=== PATIENT | female | born 1985 | race Caucasian/White ===

== ENCOUNTER 2022-03-16 16:15 | Outpatient (RCR) | payer BC, SELFPAY ==
[2022-03-16 17:02] LABS: Appearance Urine Clear (Clear); Basophils Percent Auto 0.4 % (0.2-1.2); Bilirubin Urine Negative (Negative); Blood Urine Negative (Negative); Color Urine Yellow (Yellow); Eosinophils Absolute Auto 0.1 K/mm3 (0-0.3); Eosinophils Percent Auto 1.5 % (0-4.4); Glucose Urine UA Negative (Negative); Hematocrit 32.8 % (37.0-47.0); Hemoglobin 10.4 g/dL (12.0-15.0); Immature Granulocyte Absolute 0.04 K/mm3 (0.00-0.031); Immature Granulocyte Percent A 0.4 % (0-0.5); Ketones Urine Negative (Negative); Leukocyte Esterase Ur 1+ LEU/UL (Negative); Lymphocytes Absolute Auto 1.42 K/mm3 (0.9-3.2); Lymphocytes Percent Auto 15.9 % (18.3-44.2); Mean Corpuscular HGB Conc 31.7 g/dl (32-36); Mean Platelet Volume 12.8 fl (7.4-10.4); Monocytes Absolute Auto 0.5 K/mm3 (0.1-0.6); Monocytes Percent Auto 5.6 % (2.6-8.5); Neutrophils Absolute Auto 6.8 K/mm3 (1.3-6.7); Neutrophils Percent Auto 76.2 % (45.5-73.1); Nitrate Urine Negative (Negative); Platelet Count Result 172 k/mm3 (150-375); Protein Urine Negative (Negative); Red Cell Distribution Width 13.8 % (11.5-14.5); Specific Grav Ur >= 1.030 (1.001-1.035); Urobilinogen Urine 0.2 mg/dL (<2.0); White Blood Count 8.9 K/mm3 (4.5-10.0)
[2022-03-16 17:09] LABS: Bacteria Urine Trace /hpf; Mucus Urine Rare /lpf; RBC Urine 0-2 /hpf (0-2); Squamous Epithelial Cell Urine Many /hpf (Few); WBC Urine 0-3 /hpf
[2022-03-16 17:11] LABS: Add Urine Microscopic? YES
[2022-03-16 17:12] LABS: Alanine Aminotransferase 13 U/L (6-35); Albumin Level 3.5 g/dL (3.5-5.1); Alkaline Phosphatase 125 U/L (38-126); Anion Gap 3 mmol/L (8-16); Aspartate Amino Transferase 18 U/L (14-36); Bilirubin,Total < 0.1 mg/dL (0.2-1.3); Blood Urea Nitrogen 15 mg/dL (7-17); Calcium 8.7 mg/dL (8.4-10.2); Carbon Dioxide 24 mmol/L (22-30); Chloride 108 mmol/L (98-107); Estimated Glomerular Filt Rate > 60; Glucose 69 mg/dL (65-110); Potassium 3.9 mmol/L (3.4-5.0); Sodium 135 mmol/L (137-145); Uric Acid 4.8 mg/dL (2.5-7.5)
[2022-03-16 17:23] LABS: Creatinine Urine 122.6 mg/dL; Total Protein Urine Random 15 mg/dL; Ur Ttl Prot Creatinine Ratio 0.12 mg/mg (0-0.20)
[2022-03-16 17:38] VITALS: BP 142/84; PULSE 72
== END 2022-03-30 10:52 | disposition home or self-care (01) ==
LOC: ANHOBOP 16:15
PROVIDERS: Visit Provider Obstetrics & Gynecology
DX: O16.3 Unspecified maternal hypertension, third trimester (principal); Z3A.37 37 weeks gestation of pregnancy
CPT/HCPCS: 36415; 59025; 80053; 81001; 82570; 84156; 84550; 85025

== ENCOUNTER 2022-03-25 06:15 | Inpatient (IN) | payer BC, SELFPAY ==
[2022-03-25] VITALS (70 sets, daily range): BP systolic 118–164; BP diastolic 69–138; PULSE 65–117; RESP 16; TEMP 36.5–37; O2SAT 99–100; BMI 33.3
--- NOTE | 2022-03-25 06:30 | LDADM ---
This patient, Myranda Barrett, was admitted to Labor/Delivery/Recovery 106 on 03/25/22 at 06:15. Plans for labor, pain management and were discussed with patient. Patient/family oriented to hospital policies and general routines including ID bracelet, bed and alarms, visiting hours, pain management, procedures, bathroom and other care routines, personal items, smoking policy, room service/diet and guest tray routines, security routines, and visiting hours. Patient/Family are encouraged to report perceived risks to care and to ask questions if they do not understand what they are told or what they should do. See OBIX for further documentation.
[2022-03-25 07:07] LABS: Basophils Absolute Auto 0.1 K/mm3 (0.0-0.1); Basophils Percent Auto 0.6 % (0.2-1.2); Eosinophils Absolute Auto 0.1 K/mm3 (0-0.3); Eosinophils Percent Auto 1.4 % (0-4.4); Hematocrit 31.5 % (37.0-47.0); Hemoglobin 9.9 g/dL (12.0-15.0); Immature Granulocyte Absolute 0.05 K/mm3 (0.00-0.031); Immature Granulocyte Percent A 0.6 % (0-0.5); Immature Platelet Fraction Pct 15.6 % (0.9-11.2); Lymphocytes Absolute Auto 1.53 K/mm3 (0.9-3.2); Lymphocytes Percent Auto 19.5 % (18.3-44.2); Mean Corpuscular HGB Conc 31.4 g/dl (32-36); Mean Corpuscular Hemoglobin 25.8 pg (26-34); Mean Platelet Volume 12.9 fl (7.4-10.4); Monocytes Absolute Auto 0.3 K/mm3 (0.1-0.6); Monocytes Percent Auto 4.3 % (2.6-8.5); Neutrophils Absolute Auto 5.8 K/mm3 (1.3-6.7); Neutrophils Percent Auto 73.6 % (45.5-73.1); Platelet Count Result 170 k/mm3 (150-375); Red Blood Count 3.84 M/mm3 (4.2-5.4); Red Cell Distribution Width 14.5 % (11.5-14.5); White Blood Count 7.9 K/mm3 (4.5-10.0)
[2022-03-25] MEDS: LACTATED RINGERS 1,000 ML 125 ML IV CONT (07:07)
[2022-03-25] MEDS: OXYTOCIN 30 UNITS/NS 500 ML 30 UNITS/500 ML BAG IV CONT (07:08)
--- NOTE | 2022-03-25 07:39 | P.PNAN_ITS ---
Anes - Eval Pre Procedure Procedure: labor epidural Date/Time: 03/25/22 07:39 Surgeon: reji Preop Diagnosis: pain during labor Pre Op Diagnosis: iol Patient Data Age: 36 Gender: F Height: Weight: Last Vital Signs Pulse 85 03/25/22 07:01 BP 132/86 03/25/22 07:01 Allergies Allergy/AdvReac Type Severity Reaction Status Date / Time Penicillins Allergy Unknown Verified 03/16/22 17:01 Home Medications Medication Instructions Recorded Confirmed Type vit no.95-ferrous 1 tablet PO DAILY 03/16/22 03/16/22 History fumarate 28 mg-folic acid 800 mcg tablet () Laboratory Tests 03/25/22 03/25/22 06:58 06:58 WBC 7.9 K/mm3 K/mm3 (4.5-10.0) RBC 3.84 M/mm3 L M/mm3 (4.2-5.4) Hgb 9.9 g/dL L g/dL (12.0-15.0) Hct 31.5 % L % (37.0-47.0) MCV 82.0 fl fl (80-100) MCH 25.8 pg L pg (26-34) MCHC 31.4 g/dl L g/dl (32-36) RDW 14.5 % % (11.5-14.5) Plt Count 170 k/mm3 k/mm3 (150-375) MPV 12.9 fl H fl (7.4-10.4) Immature Gran % (Auto) 0.6 % H % (0-0.5) Neut % (Auto) 73.6 % H % (45.5-73.1) Lymph % (Auto) 19.5 % % (18.3-44.2) [place] % (Auto) 4.3 % % (2.6-8.5) Eos % (Auto) 1.4 % % (0-4.4) Baso % (Auto) 0.6 % % (0.2-1.2) Lymph # (Auto) 1.53 K/mm3 K/mm3 (0.9-3.2) [place] # (Auto) 0.3 K/mm3 K/mm3 (0.1-0.6) Eos # (Auto) 0.1 K/mm3 K/mm3 (0-0.3) Baso # (Auto) 0.1 K/mm3 K/mm3 (0.0-0.1) Abs Immat Gran (auto) 0.05 K/mm3 H K/mm3 (0.00-0.031) Absolute Neuts (auto) 5.8 K/mm3 K/mm3 (1.3-6.7) Absolute Nucleated RBC 0.0 K/mm3 K/mm3 (0.0-0.012) Nucleated RBC % 0.0 % % (0.0-0.2) % Immature Plt Fraction 15.6 % H % (0.9-11.2) RPR Pending Patient hx anesthesia problems: none Family hx anesthesia problems: none Results Review: All pre-operative results and documents have been reviewed as part of the pre- operative evaluation. Exam Day of Procedure 03/25/22 07:39
[2022-03-25 08:20] LABS: Alanine Aminotransferase 13 U/L (6-35); Albumin Level 3.1 g/dL (3.5-5.1); Alkaline Phosphatase 133 U/L (38-126); Anion Gap 5 mmol/L (8-16); Aspartate Amino Transferase 18 U/L (14-36); Bilirubin,Total < 0.1 mg/dL (0.2-1.3); Blood Urea Nitrogen 14 mg/dL (7-17); Calcium 8.1 mg/dL (8.4-10.2); Carbon Dioxide 21 mmol/L (22-30); Chloride 108 mmol/L (98-107); Estimated CRCL calculation 106 ml/min; Estimated Glomerular Filt Rate > 60; Glucose 99 mg/dL (65-110); Potassium 3.6 mmol/L (3.4-5.0); Sodium 134 mmol/L (137-145)
--- NOTE | 2022-03-25 08:50 | WPDOBADMIT ---
Obstetrics - Admit Note Admission Note: record reviewed. Additions to the history and/or subsequent changes in the physical findings follow. 36 y/o at 38 6/7 weeks gestation here for induction of labor due to gestational hypertension, worsening bp control. GBS neg. Transferred care to my office in the midtrimester. Early complicated by NIPT pos for Trisomy 13. She was referred for MFM consultation and had a negative amniocentesis. GBS neg. No headache or visual field change, no edema. Labs have been OK. Good movement. AVSS NST reactive TOCO: irregular contractions ABD soft, nontender, gravid, vertex EXT nontender Cervix 3/80/-2. AROM with clear fluid. Cr 0.7. Other labs all OK. A: IUP at 38 6/7 weeks with gestational HTN P: Offered induction of labor. Oxytocin. Anticipate .
--- NOTE | 2022-03-25 12:23 | P.PCNOB_ITS ---
OB - Delivery Note Procedure Delivery date: 03/25/22 Procedure: Induction of labor with Events: Gestational Hypertension Induction method: Per Pitocin Protocol Delivery augmentation: Rupture of Membranes Delivery monitor: External FHT and External Uterine Route of delivery: Laceration Description: Perineal - 1st Degree Delivery repair: vicryl (3-0) Specimen: Yes (cord blood, placenta) Quantitative Blood Loss (ml): 110 Anesthesia type: Epidural Disposition: PACU Complications: None Narrative: 36 y/o at 38 6/7 weeks gestation who presented to the hospital for induction of labor for gestational hypertension. Oxytocin was administered intravenously. Amniotomy was performed with return of clear fluid. She received an epidural for pain control. Her labor progressed and her cervix dilated completely. She pushed with good effort and delivered the 's head to the perineum, followed by the body. The nose and mouth were bulb suctioned. After a delay, the cord was clamped and cut. The was handed off the field. Cord blood was collected. The placenta delivered spontaneously and was grossly normal in appearance. The usual 3 vessel cord was noted. A first degree midline perineal laceration was sustained. This was reapproximated using 3 0 Vicryl in a single figure of eight suture. Excellent hemostasis resulted as did excellent reapproximation of the normal anatomy. Needle and instrument counts were correct. The patient was taken to recovery room in stable condition . The infant went to the nursery in stable condition. I was present and scrubbed for the entire delivery. Baby Date of : 03/25/22 Time of : 12:04 Weeks of gestation at delivery: 38 gender: Female Weight (pounds): 6 Weight (ounces): 7 presentation: vertex position: Left Occiput Anterior Placenta delivery description: Spontaneous and Normal Configuration Cord Vessel Description: 3 Vessels and Delayed Cord Clamping score one minute: 9 score five minutes: 9
[2022-03-25] MEDS: OXYTOCIN 30 UNITS/NS 500 ML 30 UNITS/500 ML BAG 125 UNITS IV CONT (12:45)
[2022-03-25] MEDS: DOCUSATE SODIUM 100 MG CAPSULE PO (16:14)
[2022-03-25] MEDS: POLYSACCHARIDE IRON COMPLEX 150 MG CAPSULE PO (16:14)
[2022-03-25] MEDS: IBUPROFEN 600 MG TABLET PO (16:14)
--- NOTE | 2022-03-25 19:11 | OBPPTRN ---
1450-Patient transferred to post room #278 via wheelchair. Support person present. Oriented to unit, room, information board, rooming in, admission packet and security measures. Patient verbalizes understanding.
[2022-03-25] MEDS: ACETAMINOPHEN 325 MG TABLET 650 MG PO (21:45)
[2022-03-26] VITALS (7 sets, daily range): BP systolic 136–145; BP diastolic 84–90; PULSE 70–78; RESP 16–18; TEMP 36.7–36.8; O2SAT 100
[2022-03-26] MEDS: IBUPROFEN 600 MG TABLET PO ×3 (00:41→18:37)
[2022-03-26] MEDS: ACETAMINOPHEN 325 MG TABLET 650 MG PO (02:45)
[2022-03-26 04:58] LABS: Hematocrit 30.6 % (37.0-47.0); Hemoglobin 9.5 g/dL (12.0-15.0)
--- NOTE | 2022-03-26 08:13 | PM.OBPNVD ---
OB - PN: Subj Subjective Date/time seen: 03/26/22 08:13 Patient comments: no complaints, pain well controlled and tolerating diet [place] feeding status: exclusively breast feeding Narrative: patient doing well this AM. No complaints. Pain is well controlled. She reports minimal bleeding. She is ambulating and voiding without difficulty. She is tolerating PO. She denies N/V, fever, chills. OB - PN: Obj Data Labs CBC & Chem 7: 03/26/22 03:37 03/25/22 08:04 Labs: Laboratory Results - last 24 hr 03/25/22 03/25/22 03/26/22 06:58 08:04 03:37 Hgb 9.5 L Hct 30.6 L Sodium 134 L Potassium 3.6 Chloride 108 H Carbon Dioxide 21 L Anion Gap 5 L BUN 14 Creatinine 0.70 Estim Creat Clear Calc 106 Estimated GFR > 60 Glucose 99 Calcium 8.1 L Total Bilirubin < 0.1 L AST 18 ALT 13 Alkaline Phosphatase 133 H Total Protein 6.0 L Albumin 3.1 L Blood Type O Positive Antibody Screen Negative OB - PN A/P Plan day: 1 Plan: routine care Comments: patient doing well H/H 9.02/15, continue iron supplementation BP mild range, will continue to monitor. Pt to follow up in office in 1 wk continue routine care Time Spent With Patient Time: Total time spent is greater than 50% in coordination of care (as documented) at patient's floor/unit and/or counseling patient: Time with patient: less than 15 minutes Review of Systems Review of Systems: All systems reviewed & are unremarkable except as noted in HPI and below Exam Const: General: comfortable and no acute distress Resp: Effort & Inspection: normal respiratory effort Cardio: Rate: regular rate GI: GI Palp: Yes Soft to palpation and No Tenderness to palpation present (GI) Auscultation: normal bowel sounds Other: fundus firm and below umbilicus. Psych: Affect: normal affect
[2022-03-26 08:35] LABS: Rapid Plasma Reagin Non-Reactive (NonReactive)
[2022-03-26] MEDS: MULTIVIT/MIN/PREN/FOL AC/IRON TABLET 1 TAB PO (09:58)
[2022-03-26] MEDS: DOCUSATE SODIUM 100 MG CAPSULE PO ×2 (10:01→18:36)
[2022-03-26] MEDS: POLYSACCHARIDE IRON COMPLEX 150 MG CAPSULE PO ×2 (10:01→18:36)
--- NOTE | 2022-03-26 12:54 | PC.NURSE ---
[id number] Introductions were made, then consulted with patient to assess needs related to . Infant is in the bassinet wrapped up and mother is relaxed in her bed using her phone. Mother led the conversation with her experience feeding her so far and demonstrated latching in cradle position with non-optimal latch and described the latch as pinchy . Mother works well with her with encouragement and education. RN suggested understanding of the benefits of skin to skin (unwrapping and placing vertically on her chest), responsive feeding and how to watch for early feeding signs, frequency of feeding on demand about every 8-12 times in 24 hours (every 2-3 hours), milk production, duration of feeding, signs of adequate intake/output and how to record on the feeding sheet. Reminded mother of efforts to look for to train to latch optimally and not sleep through feedings, positioning and ear, shoulder, hip alignment, supporting the breast, asymmetrical latch (off-center), and leading with the chin with a big open side gape. latched optimally to the right breast in football position. Education given to mother of how to visualize suck/swallow ratios and drinking at the breast. was able to maintain latch without discomfort to mother. Nipple care reviewed with optimal latch and good positioning. Reminding mother of comfort measures of healing with a warm and wet washcloth to rinse breast, then leave open to air-dry as needed. Reviewed good handwashing when or touching the breast/nipples to prevent infection. Resources used to facilitate learning were used with the visual handouts/ tool/mom and baby guide. Mother voiced understanding of responsive feedings, stimulating with skin to skin, hand expressed colostrum, touch, talking to to encourage if it has been 2 -3 hours since the start of the last , to call if does not latch or there is discomfort with . Reported to the primary RN.
--- NOTE | 2022-03-26 13:22 | WPDANLDPN2 ---
Anes-Prog Note L&D Date/Time: 03/26/22 13:22 Comfortable throughout: labor and delivery Neuraxial method: epidural Epidural/Spinal procedure site: clean & non-tender Neuro status: Neuro function grossly intact. Cardiovascular status: normal Respiratory status: normal Airway patency: baseline Mental status: baseline Post-Op hydration status: normal Vital Signs: Last Vital Signs Temp 36.7 C 03/26/22 12:36 Pulse 76 03/26/22 12:36 Resp 16 03/26/22 12:36 BP 136/86 03/26/22 12:36 Pulse Ox 100 03/26/22 12:36 O2 Del Method Room Air 03/26/22 08:00 Pain score (VAS): 09/28 I/O: Intake & Output 03/25/22 03/26/22 03/26/22 23:59 07:59 15:59 Intake Total 600 300 Output Total 790 Balance 600 -490 Post-procedural complaints: none Patient feedback: Patient satisfied with anesthetic care.
[2022-03-27] MEDS: IBUPROFEN 600 MG TABLET PO ×2 (02:54→09:33)
[2022-03-27 05:20] VITALS: BP 132/87; PULSE 80
--- NOTE | 2022-03-27 06:54 | P.DS_ITS ---
DS: Admitting Diagnosis Discharge Date 03/27/2022 Admitting Diagnosis Gestational hypertension DS: Discharge Diagnosis Discharge Diagnosis (1) Intrauterine : Code(s): Z34.90 - Encounter for supervision of normal , unspecified, unspecified trimester Status: Acute (2) Gestational hypertension: Code(s): O13.9 - Gestational [-induced] hypertension without significant proteinuria, unspecified trimester Status: Acute DS: Summary Hospital Course Reason for hospitalization: Induction of labor at 39 weeks for gestational hypertension Hospital Course: Patient was admitted for induction of labor and was successful with spontaneous vaginal delivery. Her hospital course was unremarkable Time Spent with Patient Time attestation: Total time spent providing and/or coordinating discharge services: DS: Data Data Completed and Pending Labs on day of discharge: Labs from last 24 hours 03/25/22 06:58 RPR Non-reactive Discharge Plan Discharge Attending physician on discharge: Yared Kaur Discharging Clinician: Yared Kaur Patient Disposition: Home, Self-Care Activity: pelvic rest Diet: regular Discharge Instructions: Call or return if temperature above 100.4? F, increased abdominal pain, increased vaginal bleeding or any new problems. Stand Alone Forms: General Discharge Information Follow-up/Referrals: Yared Kaur MD [Physician] - 6 Weeks Discharge Medications: New ibuprofen 600 mg tablet 600 mg PO Q6H PRN (Reason: cramps) Qty: 30 0RF Continued PNV cmb#95-ferrous fumarate-FA [] 28 mg iron- 800 mcg Tablet 1 tablet PO DAILY Date of admission: 03/25/22 06:15 Primary Care Provider: PHYSICIAN,AUTOMATION SOFTWARE ENGINEER Admitting Provider: Yared Kaur Attending physician on admission: Yared Kaur Condition: Stable
[2022-03-27] MEDS: MULTIVIT/MIN/PREN/FOL AC/IRON TABLET 1 TAB PO (08:09)
[2022-03-27] MEDS: DOCUSATE SODIUM 100 MG CAPSULE PO (08:09)
[2022-03-27] MEDS: POLYSACCHARIDE IRON COMPLEX 150 MG CAPSULE PO (08:10)
[2022-03-27 08:15] VITALS: BP 143/93; PULSE 88; RESP 18; TEMP 36.6; O2SAT 100
--- NOTE | 2022-03-27 09:46 | PC.NURSE ---
Patient viewed the discharge video Mother & Baby Care, The First Two Weeks . Patient was given the opportunity and encouraged to ask questions. Patient verbalized understanding of information shared and has been given the mother/baby guide for home reference.
[2022-03-27] MEDS: LANOLIN (LANSINOH) 7.5 GM CREAM 1 APPLIC TOPICAL (10:11)
[2022-03-29 15:11] VITALS: BP 158/95; PULSE 89; RESP 20; TEMP 37.1; O2SAT 100
== END 2022-03-27 13:00 | disposition home or self-care (01) | DRG 807 ==
LOC: ANHLDR 12:31 → ANHOB2 03-27 09:09 → ANHLDR 03-30 10:34 → ANHOB2 03-30 10:34
PROVIDERS: Admitting Provider Obstetrics & Gynecology; Visit Provider Obstetrics & Gynecology
DX: O13.4 Gestational [pregnancy-induced] hypertension without significant proteinuria, complicating childbirth (principal); Z37.0 Single live birth; O70.0 First degree perineal laceration during delivery; Z3A.38 38 weeks gestation of pregnancy
CPT/HCPCS: 36415; 80053; 85014; 85018; 85025; 85055; 86592; 86850; 86900; 86901; A9270; J2590; J2795; J7120

== ENCOUNTER 2022-03-29 16:35 | Outpatient (CLI) | payer BC, SELFPAY ==
[2022-03-29] VITALS (12 sets, daily range): BP systolic 125–161; BP diastolic 77–96; PULSE 78–92
[2022-03-29] MEDS: LABETALOL HCL 100 MG TABLET 200 MG PO (17:37)
[2022-03-29 17:38] LABS: Basophils Percent Auto 0.4 % (0.2-1.2); Eosinophils Absolute Auto 0.3 K/mm3 (0-0.3); Eosinophils Percent Auto 3.9 % (0-4.4); Hemoglobin 10.6 g/dL (12.0-15.0); Immature Granulocyte Absolute 0.05 K/mm3 (0.00-0.031); Immature Granulocyte Percent A 0.7 % (0-0.5); Lymphocytes Absolute Auto 1.07 K/mm3 (0.9-3.2); Lymphocytes Percent Auto 14.5 % (18.3-44.2); Mean Corpuscular HGB Conc 30.3 g/dl (32-36); Mean Corpuscular Hemoglobin 25.5 pg (26-34); Mean Corpuscular Volume 84.3 fl (80-100); Mean Platelet Volume 11.5 fl (7.4-10.4); Monocytes Absolute Auto 0.3 K/mm3 (0.1-0.6); Monocytes Percent Auto 3.7 % (2.6-8.5); Neutrophils Absolute Auto 5.7 K/mm3 (1.3-6.7); Neutrophils Percent Auto 76.8 % (45.5-73.1); Platelet Count Result 202 k/mm3 (150-375); Red Blood Count 4.15 M/mm3 (4.2-5.4); Red Cell Distribution Width 14.7 % (11.5-14.5); White Blood Count 7.4 K/mm3 (4.5-10.0)
[2022-03-29 17:53] LABS: Alanine Aminotransferase 58 U/L (6-35); Albumin Level 3.6 g/dL (3.5-5.1); Alkaline Phosphatase 111 U/L (38-126); Anion Gap 3 mmol/L (8-16); Aspartate Amino Transferase 60 U/L (14-36); Bilirubin,Total 0.2 mg/dL (0.2-1.3); Blood Urea Nitrogen 18 mg/dL (7-17); Calcium 8.7 mg/dL (8.4-10.2); Carbon Dioxide 26 mmol/L (22-30); Chloride 106 mmol/L (98-107); Estimated Glomerular Filt Rate > 60; Glucose 86 mg/dL (65-110); Potassium 4.2 mmol/L (3.4-5.0); Sodium 135 mmol/L (137-145)
--- NOTE | 2022-03-29 17:57 | PC.NURSE ---
Called Dr. Shalom Goode reviewed pt headache, lab results, and blood pressure. Orders received to administer Fiorcet, labetalol 200 mg BID, and D/C.
--- NOTE | 2022-03-29 18:11 | P.PNOB_ITS ---
OB - Triage/Final Diagnosis Visit Information Date of evaluation: 03/29/22 Reason for evaluation: other ( hypertension) Comments/Additional reasons for admission: I have assessed the risk for this patient, Myranda Barrett, and determined that she would benefit from observation care. Evaluation Laboratory results: Laboratory Tests 03/29/22 03/29/22 17:19 17:19 WBC 7.4 RBC 4.15 L Hgb 10.6 L Hct 35.0 L MCV 84.3 MCH 25.5 L MCHC 30.3 L RDW 14.7 H Plt Count 202 MPV 11.5 H Immature Gran % (Auto) 0.7 H Neut % (Auto) 76.8 H Lymph % (Auto) 14.5 L [place] % (Auto) 3.7 Eos % (Auto) 3.9 Baso % (Auto) 0.4 Lymph # (Auto) 1.07 [place] # (Auto) 0.3 Eos # (Auto) 0.3 Baso # (Auto) 0.0 Abs Immat Gran (auto) 0.05 H Absolute Neuts (auto) 5.7 Absolute Nucleated RBC 0.0 Nucleated RBC % 0.0 Sodium 135 L Potassium 4.2 Chloride 106 Carbon Dioxide 26 Anion Gap 3 L BUN 18 H Creatinine 0.80 Estim Creat Clear Calc Not Reportable Estimated GFR > 60 Glucose 86 Uric Acid 5.0 Calcium 8.7 Total Bilirubin 0.2 AST 60 H ALT 58 H Alkaline Phosphatase 111 Total Protein 7.0 Albumin 3.6 Vital signs: Vital Signs - 24 hr 03/29/22 17:11 03/29/22 17:13 03/29/22 17:16 Pulse Rate 87 86 85 Blood Pressure 161/91 H 140/83 144/86 H Blood Pressure [Left Arm] 03/29/22 17:31 03/29/22 17:46 03/29/22 17:49 Pulse Rate 85 88 78 Blood Pressure 139/81 125/77 149/86 H Blood Pressure [Left Arm] 03/29/22 18:01 03/29/22 17:37 03/29/22 17:40 Pulse Rate 81 82 86 Blood Pressure 146/88 H Blood Pressure [Left Arm] 140/83 03/29/22 17:50 Pulse Rate 78 Blood Pressure 149/86 H Blood Pressure [Left Arm]
[2022-03-29] MEDS: ACETAMINOPHEN/BUTALBITAL/CAFFEINE 325-50-40 MG TABLET (FIORICET) 1 TAB PO (18:32)
== END 2022-03-29 18:47 | disposition home or self-care (01) ==
LOC: ANHOBOP 16:51 → ANHOBPP 16:52
PROVIDERS: Obstetrics & Gynecology; Visit Provider Obstetrics & Gynecology
DX: O16.5 Unspecified maternal hypertension, complicating the puerperium (principal); Z3A.00 Weeks of gestation of pregnancy not specified
CPT/HCPCS: 36415; 80053; 84550; 85025; 99199; A9270

== ENCOUNTER 2022-03-30 16:20 | Outpatient (CLI) | payer BC, SELFPAY ==
[2022-03-30] VITALS (18 sets, daily range): BP systolic 122–155; BP diastolic 75–98; PULSE 74–98
--- NOTE | 2022-03-30 16:35 | PC.NURSE ---
Called Dr. Shalom Goode with pt status. Informed of BP. Pt complaining of headache that has not gone away since she was here yesterday. Orders received.
[2022-03-30] MEDS: ONDANSETRON HCL ODT 4 MG TABLET PO (17:02)
[2022-03-30 17:03] LABS: Basophils Percent Auto 0.5 % (0.2-1.2); Eosinophils Absolute Auto 0.2 K/mm3 (0-0.3); Eosinophils Percent Auto 2.5 % (0-4.4); Hematocrit 34.9 % (37.0-47.0); Hemoglobin 10.9 g/dL (12.0-15.0); Immature Granulocyte Absolute 0.06 K/mm3 (0.00-0.031); Immature Granulocyte Percent A 0.7 % (0-0.5); Lymphocytes Percent Auto 13.7 % (18.3-44.2); Mean Corpuscular HGB Conc 31.2 g/dl (32-36); Mean Corpuscular Hemoglobin 25.9 pg (26-34); Mean Corpuscular Volume 82.9 fl (80-100); Monocytes Absolute Auto 0.2 K/mm3 (0.1-0.6); Monocytes Percent Auto 2.7 % (2.6-8.5); Neutrophils Absolute Auto 6.4 K/mm3 (1.3-6.7); Neutrophils Percent Auto 79.9 % (45.5-73.1); Platelet Count Result 196 k/mm3 (150-375); Red Blood Count 4.21 M/mm3 (4.2-5.4); Red Cell Distribution Width 14.8 % (11.5-14.5)
[2022-03-30 17:17] LABS: Alanine Aminotransferase 55 U/L (6-35); Albumin Level 3.8 g/dL (3.5-5.1); Alkaline Phosphatase 123 U/L (38-126); Anion Gap 5 mmol/L (8-16); Aspartate Amino Transferase 44 U/L (14-36); Bilirubin,Total 0.1 mg/dL (0.2-1.3); Blood Urea Nitrogen 15 mg/dL (7-17); Calcium 8.5 mg/dL (8.4-10.2); Carbon Dioxide 24 mmol/L (22-30); Chloride 108 mmol/L (98-107); Estimated Glomerular Filt Rate > 60; Glucose 91 mg/dL (65-110); Potassium 4.4 mmol/L (3.4-5.0); Sodium 137 mmol/L (137-145); Uric Acid 5.1 mg/dL (2.5-7.5)
[2022-03-30] MEDS: ACETAMINOPHEN/BUTALBITAL/CAFFEINE 325-50-40 MG TABLET (FIORICET) 2 TAB PO (17:21)
[2022-03-30] MEDS: LABETALOL HCL 100 MG TABLET 200 MG PO (17:22)
--- NOTE | 2022-03-30 18:30 | PC.NURSE ---
Called Dr. Shalom Goode with pt update. Lab results and most recent BP given. Pt states headache is 4.5 on 1-10 scale. Pt asking if she can go home soon. May D/C home.
[2022-03-30] MEDS: IBUPROFEN 400 MG TABLET 800 MG PO (20:44)
--- NOTE | 2022-03-30 22:04 | PC.NURSE ---
1834- pt guarding eyes from light and pushing on head. states that she is having a headache rating it 4/10 on pain scale. pt looks uncomfortable. pt requesting to go home. recommend staying until feeling a bit better. pt agrees. 1919- went in to check on pt. pt states that she still has a 4/10 headache that is right temporal and back of neck. pt states that she hasn't eaten much today and that she hasn't drank much today. warm blankets applied to neck and head for comfort. pt given sandwich/chips/soda. FOB in room and taking care of baby. 1942- called Dr. Shalom Goode- gave update on pt status. pt currently resting. order received for ibuprofen 800mg prn headache. BP's reviewed. pt may d/c home if feeling better. 2008- pt sleeping. 2034- pt states that her headache is a 2-3/10 and is wanting to d/c home. pt requesting ibuprofen prior to d/c. pt instructed on when to call physician or when to return to hospital. pt agrees. pt also reminded to continue to take labetalol 200mg BID. pt agrees.
== END 2022-03-30 20:48 | disposition home or self-care (01) ==
LOC: ANHOBOP 16:34 → ANHLDR 16:35 → ANHOBPP 04-05 06:20
PROVIDERS: Obstetrics & Gynecology; Visit Provider Obstetrics & Gynecology
DX: R51.9 Headache, unspecified (principal); O13.9 Gestational [pregnancy-induced] hypertension without significant proteinuria, unspecified trimester; Z3A.00 Weeks of gestation of pregnancy not specified
CPT/HCPCS: 36415; 80053; 84550; 85025; 99199; A9270

== ENCOUNTER 2024-02-01 22:45 | Observation (INO) | payer BC, SELFPAY ==
--- NOTE | ~2024-02-01 | CT_ITS ---
EXAMINATION: CT abdomen pelvis w con DATE: 02/01/2024 23:22 INDICATION: Right upper quadrant abdominal pain. TECHNIQUE: Computed tomography (CT) of the abdomen and pelvis was performed with 100 mL Omnipaque 350 intravenous contrast. Automated exposure control and iterative reconstruction technique were employe d. The dose-length product was 539.66 mGy-cm. COMPARISON: None. FINDINGS: The visualized portions of the lung bases demonstrate minimal atelectasis. No pleural effus ion. The heart size is normal. No pericardial effusion. The gallbladder is distended. The liver, sple en, pancreas, adrenal glands, and kidneys are normal. There are no dilated loops of bowel. The append ix is normal. There are no pathologically enlarged lymph nodes. There is no free intraperitoneal flui d. There is a 3.0 cm cyst in right ovary, likely a follicular cyst. The bones are unremarkable. IMPRESSION: 1. Gallbladder distention, which may be seen with fasting or acute cholecystitis. Correlate with phys ical exam. Reviewed, dictated and finalized at location E. IMPRESSION: 1. Gallbladder distention, which may be seen with fasting or acute cholecystiti s. Correlate with physical exam.
--- NOTE | ~2024-02-01 | US_ITS ---
EXAMINATION: US abdomen limited DATE: 02/02/2024 08:57 INDICATION: Acute cholecystitis TECHNIQUE: Multiple grayscale and Doppler ultrasound images of the abdomen were obtained. COMPARISON: CT dated 02/01/2024 FINDINGS: The pancreatic head and body are normal in appearance. The pancreatic tail is not visualized. The vi sualized proximal to mid inferior vena cava is normal. Liver has normal echogenicity and contour, wit h a smooth surface. No liver lesion identified. No intrahepatic biliary duct dilation suspected. Port al venous flow was seen in the hepatopetal, normal direction and has normal Doppler waveform. The gal lbladder is normal in appearance. There is no cholelithiasis. The common bile duct measures 3 mm, wh ich is normal. [place] sign was reported as negative by the shook machine operator. IMPRESSION: 1. Normal right upper quadrant ultrasound. Reviewed, dictated and finalized at location A.
[2024-02-01 22:55] VITALS: BP 136/88; PULSE 78; RESP 22; O2SAT 100
--- NOTE | 2024-02-01 23:06 | ED.ABDPAIN ---
HPI - Abdominal Pain General Chief Complaint: Abdominal Pain Stated Complaint: abd pain Time Seen by Provider: 02/01/24 22:57 Source: patient Mode of arrival: ambulatory Limitations: no limitations History of Present Illness HPI narrative: Patient is a 38-year-old female presents the ED with report upper abdominal pain. Patient reports pain began suddenly around 8:00 p.m. after eating grocery store [place] food. Pain has been constant since then. Radiates slightly to her back. Reports nausea due to the pain. Denies vomiting. Denies diarrhea, constipation, fevers, urinary complaints. No history of similar pain. No history of kidney stones. She does still have a gallbladder. Related Data Home Medications Medication Instructions Recorded Confirmed vit no.95-ferrous 1 tablet PO DAILY 03/16/22 03/16/22 fumarate 28 mg-folic acid 800 mcg tablet () Allergies Allergy/AdvReac Type Severity Reaction Status Date / Time Penicillins Allergy Unknown Verified 03/16/22 17:01 Review of Systems Review of Systems: CONSTITUTIONAL: Denies fever, chills, or sweats. GASTROINTESTINAL: See HPI. GENITOURINARY: Denies dysuria or hematuria. MUSCULOSKELETAL: See HPI. All systems reviewed & are unremarkable except as noted in HPI and below PMFSH Social History Social History Smoking status: Never smoker Spiritual care concerns: No Exam Narrative: GENERAL: Uncomfortable appearing, well-nourished, non-toxic, in mild acute distress due to pain. HEAD: Normocephalic, atraumatic. RESPIRATORY: Airway patent, respirations nonlabored. Clear to auscultation bilaterally, no rales, rhonchi, wheezing. CARDIOVASCULAR: Regular rate and rhythm without murmurs, rubs, or gallops. ABDOMINAL: Soft, focal tenderness in right upper quadrant, nondistended. Normoactive BS. No CVA tenderness to percussion. MUSCULOSKELETAL: Moves all extremities. No gross deformities. SKIN: Warm, dry, normal color. NEURO: A&O X3. Speech clear. PSYCHIATRIC: Appropriate mood and affect. Normal interaction. Course Vital Signs Vital signs: Vital Signs Pulse Rate 78 02/01/24 22:55 Respiratory Rate 22 H 02/01/24 22:55 Blood Pressure 136/88 02/01/24 22:55 Pulse Oximetry 100 02/01/24 22:55 Oxygen Delivery Room Air 02/01/24 22:55 Pulse Rate 78 02/01/24 22:55 Respiratory Rate 22 H 02/01/24 22:55 Blood Pressure 136/88 02/01/24 22:55 Pulse Oximetry 100 02/01/24 22:55 Oxygen Delivery Room Air 02/01/24 22:55 MDM - Abdominal Pain MDM Narrative Medical decision making narrative: Patient presented to ED with right upper quadrant abdominal pain that began suddenly tonight after eating [place] food. Vital signs are stable upon arrival. Patient uncomfortable appearing, mild acute distress due to pain. Laboratory studies with WBC count of 9.7. Mild hypokalemia of 3.1. IV replacement ordered. Normal magnesium. Stable kidney function. Bilirubin normal. AST 39, normal ALT. Lipase within normal limits. Urinalysis with 21-50 white blood cells, though moderate squamous cells. Sent for culture. Patient denies any urinary complaints. CT scan of abdomen pelvis showed distended gallbladder, which may be seen with fasting or acute cholecystitis. Recommended clinical correlation. Patient's clinical picture consistent with acute cholecystitis. She is still moderately uncomfortable on re-evaluation. Discussed lab and imaging findings. Rocephin and Flagyl started. Additional pain medication ordered. Discussed case with Dr. Gamez, gen surgery, will admit. Agrees w/ plan. Will place order for RUQ US in the am. Patient in agreement with plan and need for admission. Of note, patient has been on Zepbound for weight loss for the past 2 weeks. Medical Records Attestation: I reviewed the patient's medical records. Lab Data Attestation: I reviewed the patient's
[2024-02-01] MEDS: MORPHINE SULFATE (*CRX) 4 MG/ML INJ IV PUSH (23:09)
[2024-02-01] MEDS: ONDANSETRON INJ 4 MG/2 ML VIAL IV PUSH (23:09)
[2024-02-01 23:17] LABS: Basophils Absolute Auto 0.1 K/mm3 (0.0-0.1); Basophils Percent Auto 0.5 % (0.2-1.2); Eosinophils Absolute Auto 0.2 K/mm3 (0-0.3); Eosinophils Percent Auto 2.1 % (0-4.4); Hematocrit 39.1 % (37.0-47.0); Hemoglobin 12.6 g/dL (12.0-15.0); Immature Granulocyte Absolute 0.03 K/mm3 (0.00-0.031); Immature Granulocyte Percent A 0.3 % (0-0.5); Lymphocytes Percent Auto 21.7 % (18.3-44.2); Mean Corpuscular HGB Conc 32.2 g/dl (32-36); Mean Corpuscular Hemoglobin 27.3 pg (26-34); Mean Corpuscular Volume 84.6 fl (80-100); Mean Platelet Volume 11.4 fl (7.4-10.4); Monocytes Absolute Auto 0.4 K/mm3 (0.1-0.6); Monocytes Percent Auto 3.9 % (2.6-8.5); Neutrophils Absolute Auto 6.9 K/mm3 (1.3-6.7); Neutrophils Percent Auto 71.5 % (45.5-73.1); Platelet Count Result 205 k/mm3 (150-375); Red Blood Count 4.62 M/mm3 (4.2-5.4); White Blood Count 9.7 K/mm3 (4.5-10.0)
[2024-02-01 23:25] LABS: Appearance Urine Clear (Clear); Bacteria Urine Rare /hpf; Bilirubin Urine Negative (Negative); Blood Urine Negative (Negative); Color Urine Yellow (Yellow); Glucose Urine UA Negative (Negative); Ketones Urine Trace mg/dL (Negative); Leukocyte Esterase Ur 2+ LEU/UL (Negative); Nitrate Urine Negative (Negative); Protein Urine Trace mg/dL (Negative); Specific Grav Ur 1.021 (1.001-1.035); Squamous Epithelial Cell Urine Moderate /hpf (Few); WBC Urine 21-50 /hpf (0-3); pH Urine 8.5 (5.0-9.0)
[2024-02-01 23:27] LABS: Alanine Aminotransferase 26 U/L (6-35); Albumin Level 4.5 g/dL (3.5-5.1); Alkaline Phosphatase 76 U/L (38-126); Anion Gap 8 mmol/L (4-12); Aspartate Amino Transferase 39 U/L (14-36); Bilirubin,Total 0.6 mg/dL (0.2-1.3); Blood Urea Nitrogen 13 mg/dL (7-17); Calcium 9.1 mg/dL (8.4-10.2); Carbon Dioxide 27 mmol/L (22-30); Chloride 103 mmol/L (98-107); Estimated CRCL calculation 94 ml/min; Estimated Glomerular Filt Rate > 60; Glucose 113 mg/dL (65-110); Lipase 87 U/L (23-300); Potassium 3.1 mmol/L (3.4-5.0); Sodium 138 mmol/L (137-145)
[2024-02-01 23:31] LABS: Add Urine Microscopic? YES
[2024-02-01 23:58] LABS: Magnesium 1.9 mg/dL (1.6-2.3)
[2024-02-02] MEDS: SODIUM CHLORIDE 0.9% IV 1,000 ML 999 ML IV CONT (00:07)
[2024-02-02] MEDS: HYDROmorphone HCL INJ (*CRX) 1 MG/ML SYR 0.5 MG IV PUSH (00:07)
[2024-02-02] MEDS: ONDANSETRON INJ 4 MG/2 ML VIAL IV PUSH ×2 (00:08→06:48)
[2024-02-02 00:14] VITALS: BP 118/75; PULSE 75; RESP 15; O2SAT 100
[2024-02-02 00:34] VITALS: BP 119/72; PULSE 72; RESP 15; O2SAT 100
[2024-02-02] MEDS: SODIUM CHLORIDE 0.9% IV 1,000 ML 100 ML IV CONT (01:11)
[2024-02-02] MEDS: metroNIDAZOLE 500 MG/ISO 100ML 500 MG/100 ML BAG 100 MG IVPB ×2 (01:11→10:17)
[2024-02-02] MEDS: POTASSIUM CHLORIDE INJ 40 MEQ in SODIUM CHLORIDE 0.9% IV 500 ML 130 MEQ IVPB (02:30)
[2024-02-02 03:47] LABS: Estimated CRCL calculation 94 ml/min; Estimated Glomerular Filt Rate > 60
[2024-02-02 04:00] VITALS: BMI 29.9
[2024-02-02 05:27] VITALS: BP 108/66; PULSE 80; RESP 14; TEMP 36.4; O2SAT 100
[2024-02-02] MEDS: MORPHINE SULFATE (*CRX) 4 MG/ML INJ IV PUSH (06:47)
--- NOTE | 2024-02-02 09:36 | PM.IMHP ---
H&P: HPI History of Present Illness Date/Time: 02/02/24 09:36 Chief Complaint: Abdominal pain Narrative: This is a 38-year-old woman who developed upper abdominal pain around 8:00 p.m. last night after eating Welsh food. Her pain radiated into her back. She had associated nausea and vomiting x 2. Denies ever having this pain in the past. Her pain was persistent and ultimately brought her into the ER for evaluation last night. In the ED, she was afebrile and vital signs stable. Labs showed a normal white blood cell count, and essentially normal LFTs. Lipase also normal. Potassium was slightly low at 3.1. She received 40 mEq of potassium chloride IV last night. Urinalysis with 21-50 white blood cells, moderate squamous cells. Urine was sent for culture. She denies any urinary complaints. CT scan of the abdomen and pelvis showed a distended gallbladder which may be seen with fasting or acute cholecystitis. She continued to have pain after re-evaluation in the ER and was admitted for further workup. Right upper quadrant ultrasound was ordered for this morning. She was started on IV Rocephin and Flagyl. She is now seen on the medical floor. Review of Systems Review of Systems: All systems reviewed & are unremarkable except as noted in HPI and below PMFSH Past Medical History Medical History No pertinent past medical history Surgical History Surgical History No pertinent past surgical history Social History Social History Smoking status: Never smoker Alcohol intake: never Substance use: never Do You Feel Safe in your Home?: Yes Lack of Transportation: No Lack of Food: Never True Current Housing: I Have Housing Concerned About Future Housing: No Difficulty Paying Gas/Electric Bills: No Difficulty Paying for Meds: No Currently Unemployed: No Education: High School Diploma/GED Difficulty w/ Childcare or Family Care: No Spiritual care concerns: No Meds Home Medications and Allergies Allergies Allergy/AdvReac Type Severity Reaction Status Date / Time Penicillins Allergy Unknown Verified 03/16/22 17:01 Vital Signs Vital Signs - 24 hr 02/01/24 22:55 02/02/24 00:14 02/02/24 00:34 Temperature Pulse Rate 78 75 72 Respiratory Rate 22 H 15 15 Blood Pressure 136/88 118/75 119/72 Pulse Oximetry 100 100 100 Oxygen Delivery Room Air 02/02/24 05:27 Temperature 97.5 F L Pulse Rate 80 Respiratory Rate 14 Blood Pressure 108/66 Pulse Oximetry 100 Oxygen Delivery Exam Const: General: comfortable and no acute distress Nutritional Appearance: average body habitus Orientation/consciousness: patient oriented x3 HENMT: Head: normocephalic and atraumatic Ears: hearing grossly normal bilaterally Mouth: Yes moist mucous membranes Eyes: General: appearance normal, both eyes and all related structures Pupils: Equal, round and reactive pupils present Neck: Neck: normal visual inspection and full ROM Resp: Effort & Inspection: no respiratory distress Auscultation: clear to auscultation bilaterally Cardio: Rate: regular rate Rhythm: regular rhythm Heart sounds: S1 normal heart sound present and S2 normal heart sound present Peripheral pulses: Peripheral pulses 2+ throughout GI: Inspection: non-distended GI Palp: Yes Soft to palpation, Yes Tenderness to palpation present (GI) (very mild RUQ tenderness), No Guarding due to palpation present (GI), Yes No hepatosplenomegaly present, No Hernia present, No Palpable mass present (no palpable mass) and No Rebound tenderness present Auscultation: normal bowel sounds Skin: General skin exam: normal color Neuro: General: moves all extremities and no focal motor deficits Speech: normal speech Motor exam (neuro): 5/5 motor strength present throughout Extrem: Gene
[2024-02-02 11:09] LABS: Hematocrit 34.3 % (37.0-47.0); Mean Corpuscular HGB Conc 32.1 g/dl (32-36); Mean Corpuscular Hemoglobin 27.5 pg (26-34); Mean Corpuscular Volume 85.8 fl (80-100); Mean Platelet Volume 11.3 fl (7.4-10.4); Platelet Count Result 165 k/mm3 (150-375); Red Cell Distribution Width 13.2 % (11.5-14.5); White Blood Count 4.7 K/mm3 (4.5-10.0)
[2024-02-02 11:28] LABS: Alanine Aminotransferase 95 U/L (6-35); Albumin Level 3.5 g/dL (3.5-5.1); Alkaline Phosphatase 67 U/L (38-126); Anion Gap 4 mmol/L (4-12); Aspartate Amino Transferase 82 U/L (14-36); Bilirubin,Total 0.4 mg/dL (0.2-1.3); Blood Urea Nitrogen 7 mg/dL (7-17); Carbon Dioxide 23 mmol/L (22-30); Chloride 111 mmol/L (98-107); Estimated CRCL calculation 109 ml/min; Estimated Glomerular Filt Rate > 60; Glucose 78 mg/dL (65-110); Sodium 138 mmol/L (137-145)
[2024-02-02 14:00] VITALS: BP 110/64; PULSE 80; RESP 16; TEMP 36.4; O2SAT 100
[2024-02-02] MEDS: ACETAMINOPHEN 500 MG TABLET 1000 MG PO ×2 (16:42→22:43)
[2024-02-02 20:47] VITALS: BP 105/63; PULSE 75; RESP 16; TEMP 37.7; O2SAT 100
[2024-02-03 04:47] VITALS: BP 114/73; PULSE 80; RESP 16; TEMP 37.3; O2SAT 99
[2024-02-03] MEDS: HYDROcodone/acetaminophen (*CRX) 5-325 MG TABLET 1 TAB PO (05:08)
--- NOTE | 2024-02-03 07:41 | WPDPN ---
Progress Note: A&P Assessment and Plan (1) RUQ pain: Code(s): R10.11 - Right upper quadrant pain Status: Acute Assessment and Plan: Right upper quadrant pain improved. Could be due to biliary colic from gallbladder dysfunction. Abdominal ultrasound shows no gallstones or gallbladder wall thickening or showed finding suggestive of acute cholecystitis. She may have gallbladder dysfunction causing her symptoms but I would rather get a HIDA scan as an outpatient if she continues to have symptoms. Can discharge the as long as she eats breakfast okay. Follow-up to see me in my office in about 2 weeks for further discussion of possible gallbladder surgery. Subjective Date/time seen: 02/03/24 07:41 Interval history: Patient doing well this morning. Has not had breakfast yet but ate dinner last evening without issues. She does have a headache this morning but has a history of migraine headaches. She did receive Tylenol which did not help very much. No nausea or vomiting. No fevers. Upper cell count was normal and liver enzymes are normal. Abdominal ultrasound study showed normal gallbladder without stones or sludge. Exam GI: Other: Abdomen is soft and nondistended. Minimal right upper quadrant tenderness. No rebound or guarding. Objective Data Vital Signs Vital Signs: Vital Signs - 24 hr 02/02/24 14:00 02/02/24 20:47 02/02/24 20:00 Temperature 36.4 C L 37.7 C H Pulse Rate 80 75 Respiratory Rate 16 16 Blood Pressure 110/64 105/63 Pulse Oximetry 100 100 Oxygen Delivery Room Air 02/03/24 04:47 Temperature 37.3 C Pulse Rate 80 Respiratory Rate 16 Blood Pressure 114/73 Pulse Oximetry 99 Oxygen Delivery Intake/Output Intake/Output: Intake & Output 01/31/24 02/01/24 02/02/24 02/03/24 23:59 23:59 23:59 23:59 Intake Total 2710 300 Output Total 100 Balance 2610 300 Meds/Results Medications: Active Medications Generic Name Dose Route Start Last Admin Trade Name Freq PRN Reason Stop Dose Admin Acetaminophen 1,000 mg 02/02/24 16:15 02/02/24 22:43 Acetaminophen 500 Mg Tablet PO 1,000 mg Q6H PRN Administration Mild Pain (1-3) or Fever Hydrocodone Bitart/Acetaminophen 1 tab 02/02/24 16:16 02/03/24 05:08 Hydrocodone/Acetaminophen (*Crx) 5-325 Mg Tablet PO 1 tab Q4H PRN Administration Pain Rated 4-6 Ceftriaxone Sodium 1 gm in 50 mls @ 100 mls/hr 02/03/24 00:00 02/03/24 01:00 Rocephin 1 Gm/Ns 50 Ml IVPB Infused Q24H MONISHA Infusion Morphine Sulfate 2 mg 02/02/24 16:22 Morphine Sulfate (*Crx) 2 Mg/Ml Inj IV PUSH Q2H PRN Pain Rated 7-10 Ondansetron HCl 4 mg 02/01/24 23:55 02/02/24 06:48 Ondansetron Inj 4 Mg/2 Ml Vial IV PUSH 4 mg Q4H PRN Administration Nausea Radiology Results: ITS Impressions Abdomen/Pelvis CT 02/01/24 23:23 IMPRESSION: 1. Gallbladder distention, which may be seen with fasting or acute cholecystitis. Correlate with physical exam. Abdomen Ultrasound 02/02/24 10:59 IMPRESSION: 1. Normal right upper quadrant ultrasound. Labs Labs: Laboratory Results - last 24 hr 02/02/24 10:48 WBC 4.7 RBC 4.00 L Hgb 11.0 L Hct 34.3 L MCV 85.8 MCH 27.5 MCHC 32.1 RDW 13.2 Plt Count 165 MPV 11.3 H Sodium 138 Potassium 4.0 Chloride 111 H Carbon Dioxide 23 Anion Gap 4 BUN 7 D Creatinine 0.60 L Estim Creat Clear Calc 109 Estimated GFR > 60 Glucose 78 Calcium 8.0 L Total Bilirubin 0.4 AST 82 H ALT 95 H Alkaline Phosphatase 67 Total Protein 6.0 L Albumin 3.5
--- NOTE | 2024-02-03 18:00 | PM.DS ---
DS: Admitting Diagnosis Discharge Date 02/03/24 Admitting Diagnosis Right upper quadrant abdominal pain DS: Discharge Diagnosis Discharge Diagnosis (1) RUQ pain: Code(s): R10.11 - Right upper quadrant pain Status: Acute DS: Summary Hospital Course Reason for hospitalization: Right upper quadrant abdominal pain Hospital Course: Patient came to [facility] on February 02, 2024 after she had eaten some Urdu food and had multiple episodes of nausea vomiting and right upper quadrant abdominal pain. Workup in the emergency room showed normal white blood cell count and normal liver enzymes. CT scan abdomen pelvis showed a dilated gallbladder but without evidence of pericholecystic fluid or gallstones. She says was admitted to the hospital for further management. Overnight in the hospital she was kept NPO and given IV fluids. The next day she had abdominal ultrasound performed showing no gallstones and no gallbladder sludge. Common bile duct was of normal caliber and gallbladder wall was not thickened. No pericholecystic fluid was noted. White blood count remained normal as did the liver enzymes. She felt better the next day and was advanced on diet. She tolerated a low-fat diet and her only complaint was of having a headache but she has a prior history of head and migraine headaches. Since she had no evidence of acute cholecystitis and her pain was resolved I recommended that she be discharged from the hospital in standard low-fat bland diet with follow-up in the office in a couple weeks to perhaps further discuss HIDA scan as an outpatient for workup of gallbladder dysfunction she was agreeable to this plan and was discharged from the hospital after tolerating a solid food diet for breakfast. Status at Discharge Functional status at discharge: independent ambulation Overall status at discharge: patient is back to baseline Time Spent with Patient Time attestation: Total time spent providing and/or coordinating discharge services: Time spent: Less than 30 minutes Exam GI: Other: Abdomen is soft and nondistended. Very minimal to no tenderness the right upper quadrant of the abdomen and epigastric region of the abdomen. Abdominal exam was benign. DS: Data Imaging Radiologist's impression: EXAMINATION: CT abdomen pelvis w con DATE: 02/01/2024 23:22 INDICATION: Right upper quadrant abdominal pain. TECHNIQUE: Computed tomography (CT) of the abdomen and pelvis was performed with 100 mL Omnipaque 350 intravenous contrast. Automated exposure control and iterative reconstruction technique were employed. The dose-length product was 539.66 mGy-cm. COMPARISON: None. FINDINGS: The visualized portions of the lung bases demonstrate minimal atelectasis. No pleural effusion. The heart size is normal. No pericardial effusion. The gallbladder is distended. The liver, spleen, pancreas, adrenal glands, and kidneys are normal. There are no dilated loops of bowel. The appendix is normal. There are no pathologically enlarged lymph nodes. There is no free intraperitoneal fluid. There is a 3.0 cm cyst in right ovary, likely a follicular cyst. The bones are unremarkable. IMPRESSION: 1. Gallbladder distention, which may be seen with fasting or acute cholecystitis. Correlate with physical exam. Reviewed, dictated and finalized at location E. EXAMINATION: US abdomen limited DATE:? 02/02/2024 08:57 INDICATION: Acute cholecystitis TECHNIQUE: Multiple grayscale and Doppler ultrasound images of the abdomen were obtained. COMPARISON: CT dated 02/01/2024 FINDINGS: The pancreatic head and body are normal in appearance.? The pancreatic tail is not visualized. The visualized proximal to mid inferior vena cava is normal. Liver has normal echogenicity and contour, with a smooth surface. No liver lesion ident
== END 2024-02-03 09:55 | disposition home or self-care (01) ==
LOC: ANHED 02-02 00:24 → ANH3MEDSUR 02-02 00:30
PROVIDERS: Emergency Medicine; Nurse Practitioner Family; Admitting Provider Surgery; Emergency Provider Physician Assistant; Visit Provider Surgery
DX: R10.11 Right upper quadrant pain (principal); E87.6 Hypokalemia
CPT/HCPCS: 36415; 74177; 76705; 80053; 81001; 81025; 83690; 83735; 85025; 85027; 87086; 96365; 96366; 96367; 96374; 96375; 96376; 99285; A9270; G0378; J0696; J1170; J1836; J2270; J2405; J3480; J7030; J7040; Q9967